=== PATIENT | female | born 1990 | race Two or more races ===

== ENCOUNTER 2019-06-01 18:41 | Emergency (ER) | payer SELFPAY ==
[~2019-06-01] VITALS: Ht 157.5 cm; Wt 68.0 kg
[2019-06-01 22:05] VITALS: BP 117/70
[2019-06-01 22:16] LABS: Urine WBC None Seen /hpf (0 - 5)
[2019-06-01 22:35] LABS: Urine Bacteria FEW /hpf (None Seen); Urine Blood Negative /uL (Negative); Urine Specific Gravity 1.012 (1.001-1.035)
== END 2019-06-01 22:16 | disposition home or self-care (01) ==
LOC: ER 18:41
DX: B35.4 Tinea corporis (principal)
CPT/HCPCS: 81001